=== PATIENT | female | born 1960 | race Caucasian/White ===

== ENCOUNTER 2017-04-04 13:04 | Emergency (ER) | payer SELFPAY ==
[~2017-04-04] VITALS: Ht 162.6 cm; Wt 86.0 kg
[2017-04-04 13:38] LABS: DAU SCREEN DISCLAIMER
[2017-04-04 13:43] LABS: BLOOD UREA NITROGEN 12 mg/dL (7-18)
[2017-04-04 16:50] VITALS: BP 164/73
[2017-04-04] MEDS ORDERED: LORazepam 1MG TABLET PO ONE (17:00)
[2017-04-04] MEDS ORDERED: LORazepam 1MG TABLET ONE (17:01)
== END 2017-04-04 17:23 | disposition home or self-care (01) ==
LOC: ED 17:18
DX: F10.180 Alcohol abuse with alcohol-induced anxiety disorder (principal); F15.180 Other stimulant abuse with stimulant-induced anxiety disorder; N39.0 Urinary tract infection, site not specified; F32.9 Major depressive disorder, single episode, unspecified
CPT/HCPCS: 36415; 80048; 80307; 81001; 82040; 85025; 87086; 99284